=== PATIENT | female | born 1980 | race Hispanic/Latino ===

== ENCOUNTER → 2024-05-03 18:10 | Outpatient (REF) | payer BC, SELFPAY | LOC: WDC 18:10 | PROVIDERS: ATTENDING PHYSICIAN Surgery | DX: Z91.89 Other specified personal risk factors, not elsewhere classified (principal); R92.2 Inconclusive mammogram; Z12.31 Encounter for screening mammogram for malignant neoplasm of breast | CPT/HCPCS: 77063; 77067 ==